=== PATIENT | female | born 1960 | race Caucasian/White ===

== ENCOUNTER 2020-06-17 20:34 | Inpatient (IN) | payer BC ==
[~2020-06-17] VITALS: Ht 154.9 cm; Wt 75.0 kg
[~2020-06-17 20:34] MED LIST: BUPR150T8 PO; EST TOP; GABA-338 PO; LORA0.5T PO; MELO-83 PO; METH5TAB PO; NORCO10T PO; PROGEST TOP; TOP100T PO; [UNRECOGNIZED DRUG - OTHER] TOP
[2020-06-17] MEDS ORDERED: normal saline 1000ml 1,000 ML IV ONE (21:00)
[2020-06-17] MEDS ORDERED: diphenhydrAMINE 50 mg/ml inj IV ONE (21:00)
[2020-06-17] MEDS ORDERED: proCHLORperazine 10 MG/2 ml inj IV PRN (21:00)
--- NOTE | 2020-06-17 21:06 | NUR ---
out to ct via [facility]
[2020-06-17 21:24] LABS: BASOPHILS # (AUTO) 0.1 X10'3 (0-0.2); BASOPHILS % (AUTO) 0.9 % (0-1); EOSINOPHILS # (AUTO) 0.6 X10'3 (0-0.9); EOSINOPHILS % (AUTO) 6.8 % (0-6); HEMATOCRIT 40.2 % (35.0-45.0); HEMOGLOBIN 13.5 g/dl (12.0-16.0); LYMPHOCYTES # (AUTO) 2.4 X10'3 (1.1-4.8); LYMPHOCYTES % (AUTO) 28.6 % (21-51); MEAN CORPUSCULAR HEMOGLOBIN 33.2 PG (27.0-31.0); MEAN CORPUSCULAR HGB CONC 33.5 g/dL (33.0-36.5); MEAN CORPUSCULAR VOLUME 98.9 FL (78-98); MEAN PLATELET VOLUME 8.7 FL (7.4-10.4); MONOCYTES # (AUTO) 0.8 X10'3 (0-0.9); MONOCYTES % (AUTO) 9.3 % (2-12); NEUTROPHILS # (AUTO) 4.6 X10'3 (1.8-7.7); NEUTROPHILS % (AUTO) 54.4 % (42-75); PLATELET COUNT 313 X10'3 (140-440); RED BLOOD COUNT 4.06 X10'6 (4.20-5.60); RED CELL DISTRIBUTION WIDTH 13.4 % (11.5-14.5); WHITE BLOOD COUNT 8.5 X10'3 (4.5-11.0)
[2020-06-17 21:32] LABS: ALANINE AMINOTRANSFERASE 19 U/L (12-78); ALBUMIN 3.6 G/DL (3.4-5.0); ALKALINE PHOSPHATASE 59 IU/L (46-116); ANION GAP 9 (8-16); ASPARTATE AMINO TRANSFERASE 18 U/L (10-37); BILIRUBIN,TOTAL 0.2 MG/DL (0.1-1.0); BLOOD UREA NITROGEN 15 MG/DL (7-18); BUN/CREATININE RATIO 14.4 (6.6-38.0); CALCIUM 8.8 MG/DL (8.5-10.1); CHLORIDE 103 MMOL/L (99-107); CREATININE 1.04 MG/DL (0.40-0.90); GLUCOSE 97 MG/DL (70-104); POTASSIUM 3.8 MMOL/L (3.5-5.1); SODIUM 138 MMOL/L (135-145); TOTAL CARBON DIOXIDE 25.6 MMOL/L (24-32); TOTAL PROTEIN 7.2 G/DL (6.4-8.2); eGFR 54 ML/MIN
[2020-06-17] MEDS ORDERED: ketorolac trometh. 30mg/ml inj. IV ONE (21:40)
[2020-06-17 21:45] LABS: PARTIAL THROMBOPLASTIN TIME 30 SECONDS (22-32)
[2020-06-17] MEDS ORDERED: aspirin 81mg tab.chew PO ONE (22:20)
[2020-06-17] MEDS ORDERED: iohexol 350MG/ML 100ml bottle IV ONE (22:24)
--- NOTE | 2020-06-17 22:32 | NUR ---
TO CT VIA WC
[2020-06-17] MEDS ORDERED: clopidogrel 75mg tablet PO ONE (22:45)
[2020-06-17] MEDS ORDERED: VALS160T30 PO (23:03)
[2020-06-17] MEDS ORDERED: GABA-530 PO (23:03)
[2020-06-17] MEDS ORDERED: TOPI50TA24 PO (23:03)
[2020-06-17] MEDS ORDERED: HYDR-3972 PO (23:03)
[2020-06-17] MEDS ORDERED: BUPR300T86 PO (23:03)
[2020-06-17] MEDS ORDERED: BACL10TA2 PO (23:03)
[2020-06-17] MEDS ORDERED: HYDROcodone/acetaminophen 10/325mg tab PO PRN (23:15)
[2020-06-17] MEDS ORDERED: acetaminophen 325mg tablet PO PRN (23:20)
[2020-06-17] MEDS ORDERED: potassium CL 10mEq/100ml bag 100 ML IV PRN ×2 (23:20)
[2020-06-17] MEDS ORDERED: magnesium 4gm in 100ml NS 100 ML IV PRN (23:20)
[2020-06-17] MEDS ORDERED: mag hydrox/Alum hydrox/simeth 30ml oral suspension PO PRN (23:20)
[2020-06-17] MEDS ORDERED: ondansetron/PF 4mg/2ml inj IV PRN (23:20)
[2020-06-17] MEDS ORDERED: magnesium 2GM in 50ml NS 50 ML IV PRN (23:20)
[2020-06-17] MEDS ORDERED: potassium Cl 20 mEq SR tablet PO PRN ×2 (23:20)
[2020-06-17] MEDS ORDERED: magnesium hydroxide 30ml (MOM) UD suspension PO PRN (23:20)
[2020-06-17] MEDS ORDERED: ipratropium/albuterol 3ml nebule NEB PRN (23:20)
[2020-06-17] MEDS ORDERED: nicotine 21mg patch - 24 hr TD SCH (23:55)
--- NOTE | 2020-06-18 00:37 | NUR ---
Patient in room ED 8. I have received report from David LARA and had the opportunity to ask questions and assume patient care.
[2020-06-18 00:49] VITALS: BP 140/60
[2020-06-18] MEDS ORDERED: gabapentin 400mg capsule PO SCH (01:40)
[2020-06-18] MEDS ORDERED: gabapentin 300mg capsule PO SCH ×2 (01:50→08:00)
[2020-06-18 05:44] LABS: BASOPHILS # (AUTO) 0.1 X10'3 (0-0.2); BASOPHILS % (AUTO) 0.9 % (0-1); EOSINOPHILS # (AUTO) 0.5 X10'3 (0-0.9); EOSINOPHILS % (AUTO) 7.7 % (0-6); HEMATOCRIT 36.9 % (35.0-45.0); HEMOGLOBIN 12.5 g/dl (12.0-16.0); LYMPHOCYTES # (AUTO) 2.1 X10'3 (1.1-4.8); LYMPHOCYTES % (AUTO) 30.9 % (21-51); MEAN CORPUSCULAR HEMOGLOBIN 33.1 PG (27.0-31.0); MEAN CORPUSCULAR VOLUME 97.3 FL (78-98); MEAN PLATELET VOLUME 8.6 FL (7.4-10.4); MONOCYTES # (AUTO) 0.7 X10'3 (0-0.9); MONOCYTES % (AUTO) 10.4 % (2-12); NEUTROPHILS # (AUTO) 3.4 X10'3 (1.8-7.7); NEUTROPHILS % (AUTO) 50.1 % (42-75); PLATELET COUNT 297 X10'3 (140-440); RED BLOOD COUNT 3.79 X10'6 (4.20-5.60); RED CELL DISTRIBUTION WIDTH 13.4 % (11.5-14.5); WHITE BLOOD COUNT 6.9 X10'3 (4.5-11.0)
[2020-06-18 05:45] LABS: ALANINE AMINOTRANSFERASE 17 U/L (12-78); ALBUMIN 3.2 G/DL (3.4-5.0); ALBUMIN/GLOBULIN RATIO 1.1 (1.1-1.5); ALKALINE PHOSPHATASE 51 IU/L (46-116); ANION GAP 10 (8-16); ASPARTATE AMINO TRANSFERASE 11 U/L (10-37); BILIRUBIN,TOTAL 0.2 MG/DL (0.1-1.0); BLOOD UREA NITROGEN 17 MG/DL (7-18); BUN/CREATININE RATIO 17.2 (6.6-38.0); CALCIUM 8.4 MG/DL (8.5-10.1); CHLORIDE 109 MMOL/L (99-107); CREATININE 0.99 MG/DL (0.40-0.90); GLUCOSE 86 MG/DL (70-104); POTASSIUM 3.9 MMOL/L (3.5-5.1); SODIUM 141 MMOL/L (135-145); TOTAL CARBON DIOXIDE 22.5 MMOL/L (24-32); TOTAL PROTEIN 6.2 G/DL (6.4-8.2); eGFR 57 ML/MIN
[2020-06-18 05:46] LABS: CHOL/HDL RATIO 3.4 (0.00-4.99); CHOLESTEROL 131 MG/DL (0-200); HDL CHOLESTEROL 38 MG/DL (35-60); LDL CHOLESTEROL 74 MG/DL (50-100); MAGNESIUM 2.1 MG/DL (1.5-2.4); TRIGLYCERIDES 134 MG/DL (20-135)
--- NOTE | 2020-06-18 06:39 | NUR ---
Problems reprioritized. Patient report given, questions answered & plan of care reviewed with Carley LARA.
[2020-06-18] MEDS ORDERED: nicotine 21mg patch - 24 hr TD SCH (08:00)
[2020-06-18] MEDS ORDERED: K and/or MAG REPLACEMENT MC SCH (08:00)
[2020-06-18] MEDS ORDERED: buPROPion SR 150mg tablet PO SCH (08:00)
[2020-06-18] MEDS ORDERED: baclofen 10mg tablet PO SCH (08:00)
[2020-06-18] MEDS ORDERED: topiramate 25mg tablet PO SCH (08:00)
[2020-06-18 08:01] VITALS: BP 133/65
[2020-06-18 10:00] VITALS: BP 101/50
--- NOTE | 2020-06-18 10:57 | NUR ---
PAGER ID: [phone] MESSAGE: [id number] [place]- can patient have tylenol for headache? Carley [phone]
--- NOTE | 2020-06-18 11:44 | NUR ---
Anxious to go home. Still has headache on the right side of face. Rates CARRILLO 6/10. [place] helps, CARRILLO does not go away. MRI negative for acute stroke, some ischemic changes noted. Started anti hypertensive med yesterday. Pt says BP prior to CARRILLO was 110-120. Still c/o tingling lower right face. Awaiting Dr Salamanca's visit.
[2020-06-18] MEDS ORDERED: acetaminophen 325mg tablet PO PRN (12:05)
--- NOTE | 2020-06-18 13:22 | NUR ---
Patient ready for d/c. PIV removed, cannula intact. Education for stroke and smoking cessation provided. Belongings gathered and sent home with patient.
[2020-06-18] MEDS ORDERED: aspirin 81mg tablet.DR PO SCH (23:00)
[2020-06-18] MEDS ORDERED: clopidogrel 75mg tablet PO SCH (23:00)
== END 2020-06-18 13:15 | disposition home or self-care (01) | DRG 93 ==
LOC: ER 20:36 → ED HOLD 23:16 → ORTHO 4S 06-18 00:42
PROVIDERS: ADMIT Family Medicine; ATTEND Family Medicine
DX: R20.0 Anesthesia of skin (principal); F17.210 Nicotine dependence, cigarettes, uncomplicated; I10 Essential (primary) hypertension; Z79.82 Long term (current) use of aspirin; Z80.1 Family history of malignant neoplasm of trachea, bronchus and lung; Z86.73 Personal history of transient ischemic attack (TIA), and cerebral infarction without residual deficits; Z86.14 Personal history of Methicillin resistant Staphylococcus aureus infection; Z79.899 Other long term (current) drug therapy
CPT/HCPCS: 36415; 70450; 70496; 70498; 70544; 70551; 71045; 80053; 80061; 83735; 84484; 85025; 85610; 85730; 87081; 93005; 93306; 94760; 96361; 96374; 96375; 99285; G0378; J0780; J1200; J1885; J7030; Q9967

== ENCOUNTER 2022-09-22 14:41 | Emergency (ER) | payer BC ==
[~2022-09-22] VITALS: Ht 154.9 cm; Wt 65.0 kg
[~2022-09-22 14:41] MED LIST changes: +BACL10TA2 PO; -BUPR150T8 PO; +BUPR300T86 PO; -EST TOP; -GABA-338 PO; +GABA-530 PO; +HYDR-3972 PO; -LORA0.5T PO; -MELO-83 PO; -METH5TAB PO; -NORCO10T PO; -PROGEST TOP; -TOP100T PO; +TOPI50TA24 PO; +VALS160T30 PO; -[UNRECOGNIZED DRUG - OTHER] TOP
[2022-09-22] MEDS ORDERED: ipratropium/albuterol 3ml nebule IH PRN (16:40)
[2022-09-22 17:52] LABS: PLATELET COUNT 195 X10'3 (140-440); RED CELL DISTRIBUTION WIDTH 13.5 % (11.5-14.5)
[2022-09-22 17:55] LABS: BASOPHILS % (AUTO) 0.5 % (0-1); EOSINOPHILS # (AUTO) 0.1 X10'3 (0-0.9); EOSINOPHILS % (AUTO) 2.9 % (0-6); HEMATOCRIT 36.6 % (35.0-45.0); HEMOGLOBIN 12.2 g/dl (12.0-16.0); LYMPHOCYTES # (AUTO) 0.9 X10'3 (1.1-4.8); LYMPHOCYTES % (AUTO) 19.5 % (21-51); MEAN CORPUSCULAR HEMOGLOBIN 32.8 PG (27.0-31.0); MEAN CORPUSCULAR HGB CONC 33.4 g/dL (33.0-36.5); MEAN PLATELET VOLUME 8.3 FL (7.4-10.4); MONOCYTES # (AUTO) 0.6 X10'3 (0-0.9); MONOCYTES % (AUTO) 12.9 % (2-12); NEUTROPHILS % (AUTO) 64.2 % (42-75); RED BLOOD COUNT 3.73 X10'6 (4.20-5.60); WHITE BLOOD COUNT 4.7 X10'3 (4.5-11.0)
[2022-09-22 18:10] VITALS: BP 131/51
[2022-09-22 18:10] LABS: ALBUMIN 3.2 G/DL (3.4-5.0); ANION GAP 9 (8-16); BLOOD UREA NITROGEN 12 MG/DL (7-18); BUN/CREATININE RATIO 13.8 (6.6-38.0); CALCIUM 8.5 MG/DL (8.5-10.1); CHLORIDE 106 MMOL/L (99-107); CREATININE 0.87 MG/DL (0.40-0.90); GLUCOSE 96 MG/DL (70-104); POTASSIUM 4.4 MMOL/L (3.5-5.1); SODIUM 137 MMOL/L (135-145); TOTAL CARBON DIOXIDE 22.4 MMOL/L (24-32); eGFR 66 ML/MIN
== END 2022-09-22 18:33 | disposition home or self-care (01) ==
LOC: ER 14:41
DX: J10.1 Influenza due to other identified influenza virus with other respiratory manifestations (principal); Z20.822 Contact with and (suspected) exposure to COVID-19; R53.83 Other fatigue; R05.9 Cough, unspecified; R09.89 Other specified symptoms and signs involving the circulatory and respiratory systems; R50.9 Fever, unspecified; Z86.73 Personal history of transient ischemic attack (TIA), and cerebral infarction without residual deficits; Z79.899 Other long term (current) drug therapy
CPT/HCPCS: 36415; 71045; 80048; 83880; 84484; 85025; 87502; 87503; 87635; 93005; 94640; 99285; C9803